=== PATIENT | female | born 1990 | race Caucasian/White ===

== ENCOUNTER 2016-09-14 18:16 | Emergency (ER) | payer OTHER ==
[2016-09-14 19:46] LABS: URINE BILIRUBIN NEGATIVE (NEGATIVE); URINE BLOOD 2+ (NEGATIVE); URINE GLUCOSE (UA) NORMAL (NORMAL); URINE KETONE NEGATIVE (NEGATIVE); URINE LEUKOCYTE ESTERASE 2+ (NEGATIVE); URINE NITRATE NEGATIVE (NEGATIVE); URINE PROTEIN 1+ (NEGATIVE)
[2016-09-14 19:56] LABS: URINE SQUAMOUS EPITHELIAL CELL 0-10 /[HPF] (NONE SEEN); URINE WBC >15 /[HPF] (0-5)
[2016-09-14 19:57] LABS: URINE BACTERIA 3+ (NONE SEEN)
== END 2016-09-14 20:16 | disposition home or self-care (01) ==
LOC: ER 18:16
PROVIDERS: Internal Medicine
DX: N39.0 Urinary tract infection, site not specified (principal); R05 Cough; M54.5 Low back pain; F17.210 Nicotine dependence, cigarettes, uncomplicated; Z85.9 Personal history of malignant neoplasm, unspecified
CPT/HCPCS: 81001; 87086; 87186; 99070; 99283